=== PATIENT | female | born 1955 | race Caucasian/White ===

== ENCOUNTER 2024-12-07 12:18 | Emergency (ER) | payer MEDICARE, BC ==
[~2024-12-07] VITALS: Ht 160 cm; Wt 58.6 kg
[2024-12-07 11:52] VITALS: TEMP 97.1
[2024-12-07] MEDS ORDERED: ATOR40TA75 (12:41)
[2024-12-07] MEDS ORDERED: ELIQ5TAB (12:41)
[2024-12-07] MEDS ORDERED: METO1TAB32 (12:41)
[2024-12-07] MEDS ORDERED: FLEC150T (12:41)
[2024-12-07] MEDS ORDERED: AMLO2.5C6 PO (12:42)
[2024-12-07 13:56] LABS: BASO # 0.0 10^3/uL (0.0-0.2); BASO % 0.2 % (0.0-1.0); EOS # 0.0 10^3/uL (0.0-0.5); EOS % 0.5 % (0.0-3.0); LYMPH # 1.1 10^3/uL (1.5-5.0); LYMPH % 19.5 % (24.0-44.0); MONO # 0.5 10^3/uL (0.0-0.8); MONO % 9.3 % (2.0-8.0); NEUTROPHILS # 3.9 10^3/uL (1.5-8.5); NEUTROPHILS % 70.3 % (36.0-66.0); PLATELET COUNT, AUTOMATED 181 10^3/uL (150-450)
[2024-12-07 14:02] LABS: KETONE, URINE AUTO RFX TRACE mg/dL (NEGATIVE); LEUKOCYTE ESTERASE UR AUTO RFX NEGATIVE (NEGATIVE); NITRITE, URINE AUTO RFX NEGATIVE (NEGATIVE); RBC, URINE AUTO RFX 8 /HPF (0-3); SQUAM EPITHELIAL CELL UR AURFX 0 /HPF (0-6); WBC, URINE AUTO RFX 0 /HPF (0-3)
[2024-12-07 14:09] LABS: ERYTHROCYTE SEDIMENTATION RATE 27 mm/hr (0-30)
[2024-12-07 14:12] LABS: INR 1.02
[2024-12-07 14:21] LABS: CK-MB VALUE MASS < 1.0 NG/ML (<3.6)
[2024-12-07 14:29] LABS: CPK CREATINE PHOSPHOKINASE 72 U/L (34-145)
[2024-12-07 15:22] LABS: RSV AMPLIFICATION NEGATIVE (NEGATIVE)
[2024-12-07 15:28] LABS: C REACTIVE PROTEIN QUANTITATIV < 0.50 MG/DL (<1.0)
[2024-12-07 15:29] LABS: ALT/SGPT 27 U/L (7.0-40); AST/SGOT 28 U/L (<34); CALCIUM LEVEL 8.3 MG/DL (8.3-10.6); CARBON DIOXIDE LEVEL 24 MMOL/L (20-31); CHLORIDE LEVEL 98 MMOL/L (98-107); CK-MB VALUE MASS < 1.0 NG/ML (<3.6); CREATININE FOR GFR 0.73 MG/DL (0.55-1.30); GLOMERULAR FILTRATION RATE 89.0 (>45); POTASSIUM SERUM 3.9 MMOL/L (3.5-5.1); SODIUM LEVEL 135 MMOL/L (136-145)
[2024-12-07 15:40] LABS: CPK CREATINE PHOSPHOKINASE 64 U/L (34-145)
[2024-12-07 17:12] VITALS: BP 130/82
[2024-12-07 17:18] VITALS: O2SAT 98
== END 2024-12-07 18:15 | disposition home or self-care (01) ==
LOC: M ED 12:18
DX: R07.9 Chest pain, unspecified (principal); J12.2 Parainfluenza virus pneumonia; I10 Essential (primary) hypertension; I45.81 Long QT syndrome; E78.5 Hyperlipidemia, unspecified; Z86.73 Personal history of transient ischemic attack (TIA), and cerebral infarction without residual deficits; Z79.01 Long term (current) use of anticoagulants; Z79.899 Other long term (current) drug therapy